=== PATIENT | male | born 1955 | race Caucasian/White ===

== ENCOUNTER 2017-08-09 00:11 | Emergency (ER) | payer OTHER ==
[~2017-08-09] VITALS: Ht 182.9 cm; Wt 150.0 kg
[~2017-08-09 00:11] MED LIST: ALBU8I INH; ATOR10 PO; ECOT81TA2 PO; FURO20 PO; LEVO.125 PO; MAGN1SOL2 PO; METF500 PO; METHO500 PO; NAPR-576 PO; PRED20 PO; PROT40TA PO; TIOT18I INH; Z.0.OXYGENDME NC; ZITH250T PO
[2017-08-09 00:15] VITALS: BP 123/87; PULSE 99; RESP 26; TEMP 100.7; O2SAT 91
[2017-08-09 00:43] VITALS: BP 143/59; PULSE 95; RESP 20; O2SAT 92
[2017-08-09] MEDS ORDERED: TORS10TA2 PO (00:43)
[2017-08-09] MEDS ORDERED: MULTTAB67 PO (00:43)
[2017-08-09] MEDS ORDERED: FURO20TA PO (00:43)
[2017-08-09] MEDS ORDERED: METF500T PO (00:43)
[2017-08-09] MEDS ORDERED: ASPI-516 CHEW (00:43)
[2017-08-09] MEDS ORDERED: LIPI10TA PO (00:43)
[2017-08-09] MEDS ORDERED: VENTAER INH (00:43)
[2017-08-09] MEDS ORDERED: MAGN500T2 PO (00:43)
[2017-08-09] MEDS ORDERED: SPIRCAP INH (00:43)
[2017-08-09] MEDS ORDERED: NAPR500T2 PO (00:43)
[2017-08-09] MEDS ORDERED: SYNT175T PO (00:43)
--- NOTE | 2017-08-09 01:03 | PD ---
HPI Chief Complaint: Respiratory Symptoms Time Seen by Provider: 00:58 Travel History International Travel<30 days: No Contact w/Intl Traveler<30days: No Traveled to known affect area: No History of Present Illness HPI The patient is a 62 year old male who presents to the [facility] emergency department with a history of worsening shortness of breath, diaphoresis, and a sensation of his throat closing up that began over the last couple of days. He has been having chills. He had a fever with a tmax of 102 today. He has had a cough productive of yellow phlegm and a sore throat. His sister is currently sick with a URI. He denies receiving a flu immunization this season. The patient's past medical history is complicated by being admitted to the hospital related to extreme weight gain with lower extremity edema in 2015 at which time the patient was diagnosed with severe hypothyroidism and myxedema. The patient at that time had not been to the doctor for decades. The patient during his hospitalization developed respiratory failure. The patient did end up intubated. The patient was followed by , local space planner during his hospitalization. He did want the patient to follow-up with him as an outpatient, however the patient reports that it was not covered by his insurance. He was also instructed to undergo sleep apnea testing, however he has not been able to do this due to problems with his insurance. The patient is on home oxygen at this point. The patient reports that over the last few weeks he has noticed that he has had a recurrence of lower extremity edema. He reports that he took an extra dose of Lasix earlier today. On review of systems , the patient denies having any neck pain, abdominal pain, vomiting, diarrhea, urinary symptoms, or neurologic symptoms. [facility] Past Medical History Narrative Medical The patient's past medical history is significant for COPD, DM, hypertension, GERD, hypothyroid disorder. Cancer: No Cardiovascular Problems: Yes COPD: Yes Cerebrovascular Accident: Yes Diabetes: Yes Patient Takes Glucophage: Yes Endocrine: No Gastrointestinal Disorders: Yes Genitourinary: No Hiatal Hernia: Yes (ventral hernia) Hypertension: Yes (possibly) Immune Disorder: No Implanted Vascular Access Dvce: No Musculoskeletal: No Neurologic: Yes Psychiatric: No Reproductive: No Respiratory: Yes (2L NC) Immunizations Current: No Sleep Apnea: Yes Past Surgical History Narrative Surgical The patient's past surgical history is significant for a tonsillectomy. Oral Surgery: Yes Tonsillectomy: Yes Other Surgery: Yes (childhood tonsilectomy) Social History Alcohol Use: No Tobacco Use: No (quit in 1999, smoked 2 ppd back then) Substance Use: No Allergies-Medications (Allergen,Severity, Reaction): Coded Allergies: No Known Allergies (Unverified Adverse Reaction, Unknown, 08/09/17) Reported Meds & Prescriptions Reported Meds & Active Scripts Active Medrol Dosepak (Methylprednisolone) 4 Mg Dspk 4 Mg PO DIRECTED Per Pharmacist direction Cefuroxime (Cefuroxime Axetil) 500 Mg Tab 500 Mg PO BID Reported Torsemide 20 Mg Tab 20 Mg PO DAILY Potassium Chloride ER (Potassium Chloride) 10 Meq Tab 10 Meq PO DAILY Spiriva Handihaler (Tiotropium Inh) 18 Mcg Cap 18 Mcg INH DAILY 1 capsule = 18 mcg Naproxen 500 Mg Tab 500 Mg PO BID Metformin (Metformin HCl) 500 Mg Tab 500 Mg PO BIDPC Multiple Vitamin 1 Tab 1 Tab PO DAILY Magnesium Oxide 500 Mg Tab 1,000 Mg PO DAILY Synthroid (Levothyroxine Sodium) 175 Mcg Tab 175 Mcg PO DAILY Furosemide 20 Mg Tab 20 Mg PO DAILY Lipitor (Atorvastatin Calcium) 10 Mg Tab 10 Mg PO HS Aspirin 81 Mg Chew 81 Mg CHEW DAILY Ventolin Hfa 18 GM Inh (Albuterol Sulfate) 90 Mcg/Act Aer 2 Puff INH Q4-6H PRN Review of Systems Except as stated in HPI: all other systems reviewed are Neg General / Constitutional: Positive: Fever, Chills Eyes: No: Visual changes HENT: Positive: Sore Throat, Rhinorrhea, Congestion, No: Headaches Cardiovascular: Positive: Dyspnea on exertion, Edema, No: Chest Pain or Discomfort Respiratory: Positive: Cough, No: Shortness of Breath Gastrointestinal: No: Abdominal Pain Genitourinary: No: Dysuria Musculoskeletal: No: Pain Skin: No Rash Neurologic: No: Weakness, Focal Abnormalities, Change in Mentation, Slurred Speech, Sensory Disturbance Psychiatric: No: Depression Endocrine: No: Polydipsia Hematologic/Lymphatic: No: Easy Bruising Physical Exam Narrative General: The patient is a well-developed well-nourished male in no acute distress. Head and Neck exam: Head is normocephalic atraumatic. Eyes: EOMI, pupils are equal round and reactive to light. Nose: Midline septum with pink mucous membranes Mouth: Dentition unremarkable. Moist mucus membranes. Posterior oropharynx is not erythematous. No tonsillar hypertrophy. Uvula midline. Airway patent. Neck: No palpable lymphadenopathy. No nuchal rigidity. No thyromegaly. Cardiovascular: Regular rate and rhythm without murmurs, gallops, or rubs. No pulse deficit to the extremities on simultaneous auscultation and palpation of his radial artery. Lungs: Soft expiratory wheezes audible in bilateral lung chun, decreased breath sounds in bilateral bases. No accessory muscle use. No tripoding. No paroxysmal abdominal breathing. Abdomen: Soft, without tenderness to palpation in all 4 quadrants of the abdomen. No guarding, rebound, or rigidity. Normal bowel sounds are audible. No tenderness on palpation of McBurney's point. Extremities: No clubbing or cyanosis. The patient has 1+ edema bilateral lower extremities. 2+ pulses in all 4 extremities. Back: No spinous process tenderness to palpation. No costovertebral angle tenderness to palpation. Neurologic Exam: Grossly nonfocal. Skin Exam: No rash noted. Intact skin that is warm and dry. Data Data Last Documented VS Vital Signs Date Time Temp Pulse Resp B/P (MAP) Pulse Ox O2 Delivery O2 Flow Rate FiO2 08/09/17 04:34 08/09/17 03:55 99.3 81 16 95 Nasal Cannula 3.00 Orders Orders Complete Blood Count With Diff (08/09/17 01:01) Comprehensive Metabolic Panel (08/09/17 01:01) B-Type Natriuretic Peptide (08/09/17 01:01) Act Partial Throm Time (Ptt) (08/09/17 01:01) Prothrombin Time / Inr (Pt) (08/09/17 01:01) Magnesium (Mg) (08/09/17 01:01) Ckmb (Isoenzyme) Profile (08/09/17 01:01) Troponin I (08/09/17 01:01) Urinalysis - C+S If Indicated (08/09/17 01:01) Influenzae A/B Antigen (08/09/17 01:01) Blood Culture (08/09/17 01:01) Iv Access Insert/Monitor (08/09/17 01:01) Electrocardiogram (08/09/17 01:01) Ecg Monitoring (08/09/17 01:01) Oximetry (08/09/17 01:01) Oxygen Administration (08/09/17 01:01) Chest, Single Ap (08/09/17 01:01) Sodium Chloride 0.9% Flush (Ns Flush) (08/09/17 01:15) Lactic Acid Sepsis Protocol (08/09/17 01:01) CKMB (08/09/17 01:00) CKMB% (08/09/17 01:00) Cefuroxime (Ceftin) (08/09/17 04:45) Methylprednisolone So Succ Inj (Solumedr (08/09/17 04:45) Labs Laboratory Tests Test 08/09/17 01:00 08/09/17 01:59 08/09/17 03:00 White Blood Count 6.9 TH/MM3 Red Blood Count 4.33 MIL/MM3 Hemoglobin 14.0 GM/DL Hematocrit 40.0 % Mean Corpuscular Volume 92.4 FL Mean Corpuscular Hemoglobin 32.3 PG Mean Corpuscular Hemoglobin Concent 35.0 % Red Cell Distribution Width 13.8 % Platelet Count 152 TH/MM3 Mean Platelet Volume 9.3 FL Neutrophils (%) (Auto) 74.4 % Lymphocytes (%) (Auto) 10.8 % Monocytes (%) (Auto) 13.1 % Eosinophils (%) (Auto) 1.2 % Basophils (%) (Auto) 0.5 % Neutrophils # (Auto) 5.1 TH/MM3 Lymphocytes # (Auto) 0.7 TH/MM3 Monocytes # (Auto) 0.9 TH/MM3 Eosinophils # (Auto) 0.1 TH/MM3 Basophils # (Auto) 0.0 TH/MM3 CBC Comment DIFF FINAL Differential Comment Prothrombin Time 10.2 SEC Prothromb Time International Ratio 1.0 RATIO Activated Partial Thromboplast Time 22.8 SEC Blood Urea Nitrogen 14 MG/DL Creatinine 1.29 MG/DL Random Glucose 126 MG/DL Total Protein 7.7 GM/DL Albumin 3.6 GM/DL Calcium Level 8.7 MG/DL Magnesium Level 1.8 MG/DL Alkaline Phosphatase 59 U/L Aspartate Amino Transf (AST/SGOT) 40 U/L Alanine Aminotransferase (ALT/SGPT) 34 U/L Total Bilirubin 0.5 MG/DL Sodium Level 139 MEQ/L Potassium Level 4.2 MEQ/L Chloride Level 98 MEQ/L Carbon Dioxide Level 35.6 MEQ/L Anion Gap 5 MEQ/L Estimat Glomerular Filtration Rate 56 ML/MIN Total Creatine Kinase 189 U/L Creatine Kinase MB 1.2 NG/ML Troponin I LESS THAN 0.02 NG/ML B-Type Natriuretic Peptide 11 PG/ML Lactic Acid Level 1.1 mmol/L Urine Color YELLOW Urine Turbidity CLEAR Urine pH 8.0 Urine Specific [place] 1.015 Urine Protein NEG mg/dL Urine Glucose (UA) NEG mg/dL Urine Ketones NEG mg/dL Urine Occult Blood NEG Urine Nitrite NEG Urine Bilirubin NEG Urine Urobilinogen LESS THAN 2.0 MG/DL Urine Leukocyte Esterase NEG Urine RBC 1 /hpf Urine WBC 1 /hpf Urine Hyaline Casts 9 /lpf Urine Granular Casts 6 /lpf Urine Mucus FEW /lpf Microscopic Urinalysis Comment CULT NOT INDICATED MDM Medical Decision Making Medical Screen Exam Complete: Yes Emergency Medical Condition: Yes Medical Record Reviewed: Yes Interpretation(s) Last Impressions Chest X-Ray 08/09/17 0101 Signed Impressions: Service Date/Time: Wednesday, August 09, 2017 01:13 - CONCLUSION: Linear scarring or atelectasis at the left base. Naseem Byrd MD Differential Diagnosis COPD exacerbation, versus new-onset congestive heart failure, versus pneumonia, versus influenza, versus other viral syndrome Narrative Course During the course of the patients emergency department visit, the patients history, examination, and differential diagnosis were reviewed with the patient. The patient was placed on a classroom monitor with oximetry and frequent blood pressure monitoring. The patient had IV access obtained and blood work sent for analysis. The patient had an ECG done on arrival. The patient's ECG reveals a sinus rhythm with a heart rate of 86, no acute ST segment changes. QRS duration is 101 ms, QTC 410 ms. The patient was initially provided Solu-Medrol 125 mg IV 1. The patients laboratory studies were reviewed and remarkable for a CBC that is remarkable for a normal white count with a monocytosis consistent with a viral syndrome. CMP is remarkable for a CO2 of 35.6. Radiology studies were reviewed and remarkable for a chest x-ray that shows linear scarring, atelectasis at the left base. The patient on reexamination was reportedly feeling improved. The patient's symptoms are most consistent with a COPD exacerbation associated with bronchitis likely viral in origin, however given his history of COPD the patient will be treated with antibiotic. The patient was given his first dose of Ceftin by mouth 500 mg. The patient will be discharged home with a Medrol Dosepak taper and Ceftin. He reports that he does have a rescue inhaler at home as well as Spiriva. He is instructed regarding the importance of following up with the space planner and also having sleep apnea testing done. The patient is resting comfortably and feels better, is alert and in no distress. The patients results and examination findings were discussed with the patient. The repeat examination is unremarkable and benign. The history, exam, diagnostic testing, and current condition do not suggest any significant pathology to warrant further testing, continued ED treatment, admission, or surgical evaluation at this point. The vital signs have been stable. The patient does not have uncontrollable pain, intractable vomiting, or other significant symptoms. The patient's condition is stable and appropriate for discharge. The patient will pursue further outpatient evaluation with a primary care physician or other designated or consulting physician as indicated in the discharge instructions. The patient expressed understanding and was agreeable with this plan. Diagnosis Primary Impression: COPD exacerbation Additional Impression: Bronchitis Referrals: Primary Care Physician 2 days Patient Instructions: Acute Bronchitis (ED), COPD (Chronic Obstructive Pulmonary Disease) (ED), General Instructions Med/Other Pt SpecificInfo: Prescription(s) given Scripts Methylprednisolone Dosepak (Medrol Dosepak) 4 Mg Dspk 4 MG PO DIRECTED, #1 DSPK 0 Refills Per Pharmacist direction Prov: Gila Barksdale MD 08/09/17 Cefuroxime (Cefuroxime) 500 Mg Tab 500 MG PO BID for Infection, #20 TAB 0 Refills Prov: Gila Barksdale MD 08/09/17 Disposition: 01 DISCHARGE HOME Condition: Stable Gila Barksdale MD Aug 09, 2017 01:03
[2017-08-09] MEDS ORDERED: SODIUM CHLORIDE 0.9% FLUSH 10 ML FLUSH IVF PRN (01:15)
[2017-08-09 01:39] LABS: AUTOMATED NEUTROPHIL # 5.1 TH/MM3 (1.8-7.7); BASOPHIL % 0.5 % (0.0-2.0); EOSINOPHIL # 0.1 TH/MM3 (0-0.4); EOSINOPHIL % 1.2 % (0.0-4.0); LYMPH % 10.8 % (9.0-44.0); LYMPHOCYTE # 0.7 TH/MM3 (1.0-4.8); MEAN CELL VOLUME 92.4 FL (80.0-100.0); MEAN CORPUSCULAR HEMOGLOBIN 32.3 PG (27.0-34.0); MEAN PLATELET VOLUME 9.3 FL (7.0-11.0); MONO % 13.1 % (0.0-8.0); MONOCYTE # 0.9 TH/MM3 (0-0.9); NEUT % 74.4 % (16.0-70.0); PLATELET COUNT 152 TH/MM3 (150-450); RED BLOOD COUNT 4.33 MIL/MM3 (4.50-5.90); RED CELL DISTRIBUTION WIDTH 13.8 % (11.6-17.2); WHITE BLOOD COUNT 6.9 TH/MM3 (4.0-11.0)
--- NOTE | 2017-08-09 01:42 | RADRPT ---
EXAM DATE/TIME: 08/09/2017 01:13 [place] COMPARISON: CHEST SINGLE AP, May 11, 2016, 8:21. INDICATIONS : Shortness of breath. MEDICAL HISTORY : Chronic obstructive pulmonary disease. SURGICAL HISTORY : None. ENCOUNTER: Initial ACUITY: 1 day PAIN SCORE: 0/10 LOCATION: Bilateral chest FINDINGS: The heart size is normal. There is minimal linear density at the left base. Right lung is clear. No e ffusion is seen. CONCLUSION: Linear scarring or atelectasis at the left base. Naseem Byrd MD on August 09, 2017 at 1:41 Board Certified Radiologist. This report was verified electronically.
[2017-08-09 01:44] LABS: PROTHROMBIN TIME - PATIENT 10.2 SEC (9.8-11.6)
[2017-08-09 02:05] LABS: ALBUMIN 3.6 GM/DL (3.4-5.0); ALKALINE PHOSPHATASE 59 U/L (45-117); ALT (GPT) 34 U/L (12-78); AST (GOT) 40 U/L (15-37); BICARBONATE 35.6 MEQ/L (21.0-32.0); BLOOD UREA NITROGEN 14 MG/DL (7-18); CALCIUM 8.7 MG/DL (8.5-10.1); CHLORIDE 98 MEQ/L (98-107); CREATININE 1.29 MG/DL (0.60-1.30); GLOMERULAR FILTRATION RATE 56 ML/MIN (>89); GLUCOSE,RANDOM 126 MG/DL (74-106); MAGNESIUM 1.8 MG/DL (1.5-2.5); SODIUM (NA) 139 MEQ/L (136-145); TOTAL BILIRUBIN ADULT 0.5 MG/DL (0.2-1.0); TOTAL PROTEIN 7.7 GM/DL (6.4-8.2); TROPONIN I LESS THAN 0.02 NG/ML (0.02-0.05)
[2017-08-09] MEDS ORDERED: POTA10TA2 PO (03:54)
[2017-08-09] MEDS ORDERED: TORS20TA PO (03:54)
[2017-08-09 03:55] VITALS: BP 131/67; PULSE 81; RESP 16; TEMP 99.3; O2SAT 95
[2017-08-09 04:16] LABS: BILIRUBIN, URINE NEG (NEG); BLOOD, URINE NEG (NEG); GLUCOSE,URINE NEG (NEG); HYALINE CAST, URINE 9 /lpf (RARE); KETONE, URINE NEG (NEG); MUCUS URINE FEW /lpf (OCC); NITRITE,URINE NEG (NEG); URINE COLOR YELLOW (YELLW/STRAW); URINE LEUKOCYTE ESTERASE NEG (NEG)
[2017-08-09] MEDS ORDERED: MEDR4PAK PO (04:34)
[2017-08-09] MEDS ORDERED: CEFU1TAB20 PO (04:34)
[2017-08-09] MEDS ORDERED: CEFUROXIME AXETIL 500 MG TAB PO ONE (04:45)
[2017-08-09] MEDS ORDERED: methylPREDNISolone SOD SUCC 125 MG/2 ML VIAL IV PUSH ONE (04:45)
--- NOTE | 2017-08-09 12:47 | EKG ---
Date Performed: 08/09/2017 Time Performed: 01:27:04 PTAGE: 62 years EKG: Sinus rhythm LOW QRS VOLTAGE IN PRECORDIAL LEADS BORDERLINE ECG Since PREVIOUS TRACING , no significant change noted DOCTOR: Joselo Calderón Interpretating Date/Time 08/09/2017 12:45:19
== END 2017-08-09 05:40 | disposition home or self-care (01) ==
LOC: NEPC 00:11
DX: J44.1 Chronic obstructive pulmonary disease with (acute) exacerbation (principal); E03.9 Hypothyroidism, unspecified; E11.9 Type 2 diabetes mellitus without complications; Z79.84 Long term (current) use of oral hypoglycemic drugs; Z79.899 Other long term (current) drug therapy; Z87.891 Personal history of nicotine dependence
CPT/HCPCS: 71010; 80053; 81001; 82550; 82552; 83605; 83735; 83880; 84484; 85025; 85610; 85730; 87040; 87804; 93005; 96374; 99285; J2930